=== PATIENT | male | born 1985 | race Caucasian/White ===

== ENCOUNTER 2019-11-15 09:00 | Day surgery (SDC) | payer OTHER ==
[~2019-11-15] VITALS: Ht 180.3 cm; Wt 102.1 kg
--- NOTE | 2019-11-15 09:52 | NUR ---
LORIE HUSTON CRNA WITH SPINAL BLOCK. PATIENT TOLERATED WELL. HEPERAIN ADMINISTERED 10 MINUTES POST BLOCK.
--- NOTE | 2019-11-15 10:49 | NUR ---
11/15/19 1049 Marisa Coyne 1041 PT ARRIVED TO PACU ON 6L VIA MASK, VSS. PT WAKES EASILY AND DENIES PAIN AND NAUSEA. 1042 O2 MASK REMOVED AND PT BLUE MASK IN PLACE. 1044 PT SITTING IN HIGH FOLWERS AND DENIES CONCERNS. PT REPROTS 2/10 PAIN AND TOLERBALE.
--- NOTE | 2019-11-15 11:54 | OR ---
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 POSTOPERATIVE DIAGNOSIS: Acute on chronic pilonidal cyst with abscess/sinus tract. PROCEDURES: 1. Pilonidal cystectomy. 2. Deep wound cultures. ESTIMATED BLOOD LOSS: None. FINDINGS: Noelle has an unusual 7 x 15 cm area that is swollen and chronically indurated lying obliquely starting at the top of his gluteal crease and traveling out to the right side. There is a sinus tract from his pilonidal cyst up to this area. He seems to associate this with a skateboard accident when he was a teenager. INDICATIONS: Noelle is a 34-year-old gentleman, who said he crashed his skateboard when he was a teenager and has had trouble with pilonidal cyst ever since. Although, it went for years and never bothered him. It flared recently and he developed quite an infection at the superior aspect of the gluteal crease and now right to the gluteal crease. The whole area was much larger than my hand. He said it was so bad he could not sit down. He went to [facility] and ended up on Bactrim. It broke through the skin within a day or two of that and drained quite a bit of pus. He said now it is clear fluid. He had been sent to my office with respect to the above. Even in the office, it remained quite impressive. I explained to Noelle, we would take him to the operating room mainly for incision and drainage of the area and to get the infection under control. We left him on the Bactrim and schedule him within a few days of office visit. He comes today with his . [place]. She has a job with the [employer]. He told me it was much better. After answering the questions, Noelle was given a saddle block by our nurse technical sales representatives. He was then taken in the operating room and placed in the prone baljit-knife position under monitored anesthesia care. He had been given preop antibiotics along with Electronically Signed By: MARILEE HENDRICKSON MD 11/15/19 1154 PATIENT NAME: NOELLE HERNANDEZ OPERATIVE REPORT DATE OF : 83 REPORT #: [id number] PHYSICIAN: MARILEE HENDRICKSON MD PCP: WILLY CALDERON PA-C REPORT IS CONFIDENTIAL AND NOT TO BE RELEASED WITHOUT AUTHORIZATION [facility] [address] [place], [place] [address] Signed subcutaneous heparin after the saddle block. SCDs were utilized. He was prepped and draped in the usual sterile fashion. We could see that the erythema was markedly improved. The induration out lateral was much better. However he has a chronic area of induration and swelling starting at the top of the gluteal crease and running superiorly and obliquely to the right measuring 7 x 15 cm. We could see one moderate sized pit in his gluteal crease. We developed our standard elliptical incision with a #15 blade knife and carried that down around the tissue with the help of the cautery. Inferiorly, he had healthy adipose tissue. But as we approached the sacrum superiorly, it was unbelievably chronically scarred. We then found the sinus tract that was headed superiorly into the right. That tract is every bit of 7 cm in length. It was at least 2 cm in diameter. We can see he has some chronic granulation tissue. We opened that up completely what acquired every bit of a 15 cm hockey stick incision. I went ahead and probed the area with my finger and there were no other pockets that we could ascertain. We decided to go ahead and packed the wound with Dakin's solution soaked gauze and will continue on his Bactrim another 5 days, to get this to settle down as much as possible with the idea that he might need some significant surgery to address this area of his sinus tract. We then covered that area with dry gauze and underwear. He was rotated into his supine position on his hospital bed and taken into recovery room in stable condition. We did take wound cultures from up into that sinus tract from the murky fluid. Marilee Hendrickson MD ALB/MODL /[id number] cc: SABRINA Birch MD Copies: MARILEE HENDRICKSON MD ~ Electronically Signed By: MARILEE HENDRICKSON MD 11/15/19 1154 PATIENT NAME: NOELLE HERNANDEZ OPERATIVE REPORT DATE OF : 83 REPORT #: [id number] PHYSICIAN: MARILEE HENDRICKSON MD PCP: WILLY CALDERON PA-C REPORT IS CONFIDENTIAL AND NOT TO BE RELEASED WITHOUT AUTHORIZATION
--- NOTE | 2019-11-19 11:01 | PATH ---
[facility] [address] [place], [place] [address] Signed SPECIMEN(S): A PILONIDAL CYST SPECIMEN SOURCE: A. PILONIDAL CYST CLINICAL HISTORY: Pilonidal cyst with abscess. Post op: Excision of pilonidal cyst. FINAL PATHOLOGIC DIAGNOSIS: Skin and soft tissue, "pilonidal cyst", excision: - Pilonidal sinus/cyst with evidence of prior rupture and exuberant dermal inflammation. - See Microscopic. NAL:cml:C2NR MICROSCOPIC EXAMINATION: Sections demonstrate a squamous epithelium lined sinus extending from the surface skin into the dermis. The deep dermis and subcutaneous tissue underlying the sinus demonstrates exuberant acute and chronic inflammation and granulation tissue formation. The findings are compatible with a previously ruptured pilonidal sinus. Clinical correlation is required. NAL:cml GROSS DESCRIPTION: The specimen, labeled "RG," and designated on the requisition "pilonidal cyst with abscess," is received in formalin and consists of a 4.3 x 2.2 x 1.8 cm, castano-yellow, rubbery soft tissue piece with an unoriented, 2.6 x 0.6 cm segment of castano skin that has a 0.2 cm in diameter, 2.2 cm long cleft-like area centrally. The resection margin is inked blue. The specimen is cross-sectioned to reveal [id number] soft tissue, with a 1.2 x 1.0 x 1.0 cm castano-white, fibrous area with a central dark brown area of softening grossly appearing to involve the resection margin. No additional mass/lesions identified. Patients Transporter sections are submitted in two cassettes (A1-A2). AI (under the direct supervision of a pathologist) The Gross Description was prepared using a voice recognition system. The report was reviewed for accuracy; however, sound-alike word errors, addition and/or deletions may occur. If there is any PATIENT NAME: NOELLE HERNANDEZ PATHOLOGY DATE OF : 83 REPORT #: [id number] PHYSICIAN: JESSEE MCNULTY PCP: WILLY CALDERON PA-C REPORT IS CONFIDENTIAL AND NOT TO BE RELEASED WITHOUT AUTHORIZATION [facility] [address] [place], [place] [address] Signed question about this report, please contact Client Services. PERFORMING LABORATORY: The technical component was performed by [facility] [address] [address] (Piano Mover: Svetlana Peterson MD; CLIA# [id number]). Professional [email or web address], [address] [address] (CLIA# [id number]). Diagnostician: Merna Ramos MD Pathologist Electronically Signed 11/19/2019 Copies: ~ PATIENT NAME: NOELLE HERNANDEZ PATHOLOGY DATE OF : 83 REPORT #: [id number] PHYSICIAN: JESSEE MCNULTY PCP: WILLY CALDERON PA-C REPORT IS CONFIDENTIAL AND NOT TO BE RELEASED WITHOUT AUTHORIZATION
== END 2019-11-15 11:45 | disposition home or self-care (01) ==
LOC: DS 09:00 → OPS 09:00 → DS 11:00 → OPS 11:00
PROVIDERS: Colon & Rectal Surgery
PROC: 0JB90ZZ Excision of Buttock Subcutaneous Tissue and Fascia, Open Approach (ICD-10-PCS; principal; 2019-11-15 10:00)
DX: L05.91 Pilonidal cyst without abscess (principal); F17.210 Nicotine dependence, cigarettes, uncomplicated
CPT/HCPCS: 00300; 87070; 87075; 87205; J1644; J2001; J2250; J2704; J3010; J7121